=== PATIENT | male | born 1985 | race Caucasian/White ===

== ENCOUNTER → 2020-10-29 12:28 | Outpatient (BNVA) | payer SELFPAY | PROVIDERS: Family Provider Nurse Practitioner; Visit Provider Nurse Practitioner Family | DX: J06.9 Acute upper respiratory infection, unspecified (principal); Z20.828 Contact with and (suspected) exposure to other viral communicable diseases | CPT/HCPCS: 87635 ==

== ENCOUNTER → 2021-04-16 11:32 | Outpatient (BNVA) | payer SELFPAY | PROVIDERS: Family Provider Nurse Practitioner; Visit Provider Nurse Practitioner Family | DX: B00.9 Herpesviral infection, unspecified (principal); Z20.2 Contact with and (suspected) exposure to infections with a predominantly sexual mode of transmission | CPT/HCPCS: 87491; 87591 ==

== ENCOUNTER → 2021-07-07 12:22 | Outpatient (BNVA) | payer OTHER, SELFPAY | PROVIDERS: Family Provider Nurse Practitioner; Visit Provider Nurse Practitioner Family | DX: Z20.822 Contact with and (suspected) exposure to COVID-19 (principal) | CPT/HCPCS: 87635 ==

== ENCOUNTER → 2021-10-27 16:06 | Outpatient (BNVA) | payer OTHER, SELFPAY | PROVIDERS: Family Provider Nurse Practitioner; Visit Provider Nurse Practitioner Family | DX: Z20.822 Contact with and (suspected) exposure to COVID-19 (principal); J06.9 Acute upper respiratory infection, unspecified | CPT/HCPCS: 87635 ==

== ENCOUNTER → 2021-10-29 13:19 | Outpatient (BNVA) | payer OTHER, SELFPAY | PROVIDERS: Family Provider Nurse Practitioner; Visit Provider Nurse Practitioner Family | DX: Z20.822 Contact with and (suspected) exposure to COVID-19 (principal); J06.9 Acute upper respiratory infection, unspecified; Z20.828 Contact with and (suspected) exposure to other viral communicable diseases | CPT/HCPCS: 87635 ==

== ENCOUNTER 2023-04-29 19:25 | Emergency (ER) | payer MEDICAID, SELFPAY ==
[2023-04-29 19:27] VITALS: BP 103/74; PULSE 101; RESP 18; TEMP 36.7; O2SAT 99; BMI 29.8
--- NOTE | 2023-04-29 19:29 | XRR_ITS ---
PROCEDURE INFORMATION: Exam: XR Chest Exam date and time: 04/29/2023 7:36 PM Age: 37 years old Clinical indication: Pain; Chest pressure; Additional info: Cp TECHNIQUE: Imaging protocol: Radiologic exam of the chest. Views: 1 view. COMPARISON: No relevant prior studies available. FINDINGS: Lungs: The lung bases are suboptimally assessed due to technique however the upper lungs are clear of focal consolidation. Pleural spaces: The CP angles are partially excluded however no large pleural effusions are identified. No pneumothorax. Heart/Mediastinum: Cardiac silhouette appears normal in size. No obvious vascular congestion. Bones/joints: No acute osseous findings. Other findings: Single portable upright AP view was submitted. XR/XR chest 1V portable [id number] IMPRESSION: No obvious acute consolidation. Suboptimal lung base assessment. Followup including lateral view may be obtained if clinically indicated.
--- NOTE | 2023-04-29 19:29 | ECG_ITS ---
[facility] Test Date: 2023-04-29 Pat Name: Fabien Knight Department: Room: Gender: Male Recruiting Assistant: : 1985 Requested By: Jovon Gupta Order Number: [id number] Dannielle MD: Hi Garcia M.D. Measurements Intervals [place] Rate: 84 P: 14 [place]: 136 QRS: 78 QRSD: 86 T: 47 QT: 340 QTc: 403 Interpretive Statements SINUS RHYTHM No previous ECG available for comparison Electronically Signed On 04-29-2023 22:33:22 CDT by Hi Garcia M.D. [id number]
[2023-04-29 19:31] VITALS: PULSE 88; O2SAT 99
--- NOTE | 2023-04-29 19:36 | ED_ITS ---
HPI - Chest Pain General: Chief Complaint: Chest Pain Stated Complaint: CP Time Seen by Provider: 04/29/23 19:29 Source: patient, EMS and police Mode of arrival: EMS Limitations: no limitations History of Present Illness: 37-year-old male who is here from [facility]. He states he woke up roughly an hour ago with felt like he could not breathe he states his arms were shaking and had numbness in his arms he states he feeling headache of breath and his heart was racing. He states been having some chest pain. He is appears quite anxious he states he feels anxious as well. Denies any fevers denies any cough denies any worsening proving factors. Associated symptoms: Reports dyspnea; Deny abdominal pain, fever(s), nausea or vomiting Review of Systems Const: Denies: fever(s), chills, body aches or change in appetite Eyes: Denies: blurry vision or eye discomfort ENMT: Denies: throat pain or dental pain Card: Reports: chest pain Resp: Reports: dyspnea GI: Denies: abdominal pain, nausea, vomiting or diarrhea : Denies: dysuria Musc: Denies: neck pain or back pain Skin/Breast: Denies: rash Neuro: Denies: headache(s) Psych: Denies: depression Darian/Lymph: Denies: easy bruising All/Imm: Denies: urticaria PFS ED PFSH: Social History Smoking and tobacco status: current every day smoker Alcohol intake: never Physical Exam Const: COMMON NORMALS: no acute distress, patient oriented x3 and healthy appe [facility] GENERAL APPEARANCE: anxious HENMT: COMMON NORMALS: normocephalic and atraumatic HEAD & SCALP: normocephalic and atraumatic Neck/C-Spine: COMMON NORMALS: full ROM and supple Chest: COMMONS NORMALS: normal inspection of the chest and normal palpation of entire chest wall Resp: COMMON NORMALS: normal respiratory effort, No retractions, No use of accessory muscles and clear to auscultation bilaterally AUSCULTATION: clear to auscultation bilaterally Cardio: COMMON NORMALS: regular rate, regular rhythm and No murmurs present (Cardio) RATE: regular rate RHYTHM: regular rhythm GI: COMMON NORMALS: Normal to inspection, nondistended, normoactive bowel sounds present, Soft to palpation, non-tender and no masses PALPATION: Yes Soft to palpation Extremity: COMMON NORMALS: normal to inspection and full ROM Neuro: COMMON NORMALS: patient oriented x3, moves all extremities and no focal motor deficits Psych: COMMON NORMALS: mental status grossly normal, Normal thought process present and cooperative THOUGHT PROCESS: Normal thought process present Skin: COMMON NORMALS: no rashes or lesions noted and no wounds GENERAL SKIN EXAM: no rashes or lesions noted Course Vital Signs: Vital signs: Vital Signs Temperature 98.1 F 04/29/23 19: Pulse Rate 101 H 04/29/23 19: Respiratory Rate 18 04/29/23 19: Blood Pressure 103/74 04/29/23 19: Pulse Oximetry 99 04/29/23 19:27 MDM - Chest Pain Medical Decision Making Patient presents here with chest pain along with dyspnea is likely an anxiety attack. Patient feels much improved after Ativan his EKG x-ray and troponin here are normal he is stable for discharge he is to follow-up with PCP and return if worsening. Medical Records I reviewed the patient's medical records. Lab Data I reviewed the patient's lab results. 04/29/23 19:00 04/29/23 19:00 Laboratory Results WBC 8.4 10^3/uL (4.0-10.0) 04/29/23 19:00 RBC 4.97 10^6/uL (4.1-5.3) 04/29/23 19:00 Hgb 14.4 g/dL (11.7-16.6) 04/29/23 19:00 Hct 43.5 % (42.0-52.0) 04/29/23 19:00 MCV 87.5 fl (80-94) 04/29/23 19:00 MCH 29.0 pg (28.0-34.0) 04/29/23 19:00 MCHC 33.1 g/dL (30.0-36.0) 04/29/23 19:00 RDW 12.1 % (12.1-15.1) 04/29/23 19:00 Plt Count 260 10^3/cmm (130-400) 04/29/23 19:00 MPV 9.9 fL (7.4-10.4) 04/29/23 19:00 Neut % (Auto) 54.1 % 04/29/23 19:00 Lymph % (Auto) 33.5 % 04/29/23 19:00 [place] % (Auto) 7.9 % 04/29/23 19:00 Eos % (Auto) 3.5 % 04/29/23 19:00 Baso % (Auto) 0.6 % 04/29/23 19:00 Neut # (Auto) 4.53 10^3/uL (1.8-7.7) 04/29/23 19:00 Lymph # (Auto) 2.8 10^3/uL (0.8-4.8) 04/29/23 19:00 [place] # (Auto) 0.7 10^3/uL (0.2-0.9) 04/29/23 19:00 Eos # (Auto) 0.3 10^3/uL (0.0-0.8) 04/29/23 19:00 Baso # (Auto) 0.1 10^3/uL (0.0-0.1) 04/29/23 19:00 Nucleated RBC % (auto) 0 % 04/29/23 19:00 Nucleated RBCs # 0.0 /100WBC 04/29/23 19:00 Sodium 140 mmol/L (136-145) 04/29/23 19:00 Potassium 4.0 mmol/L (3.5-5.1) 04/29/23 19:00 Chloride 104 mmol/L (98-107) 04/29/23 19:00 Carbon Dioxide 25 mmol/L (22-29) 04/29/23 19:00 Anion Gap 15.0 (5-19) 04/29/23 19:00 BUN 20 mg/dL (6-20) 04/29/23 19:00 Creatinine 0.9 mg/dL (0.7-1.2) 04/29/23 19:00 GFR Calculation 94.4 mL/min (90-130) 04/29/23 19:00 Glucose 104 mg/dL (65-115) 04/29/23 19:00 Calculated Osmolality 293 mOsm/kg (285-295) 04/29/23 19:00 Calcium 8.5 mg/dL (8.5-10.5) 04/29/23 19:00 Total Bilirubin 0.3 mg/dL (0.15-1.2) 04/29/23 19:00 AST 12 U/L (0-40) 04/29/23 19:00 ALT 12 U/L (0-41) 04/29/23 19:00 Alkaline Phosphatase 72 U/L (40-130) 04/29/23 19:00 Troponin T Baseline 6 ng/L (0-15) 04/29/23 19:00 Total Protein 6.8 g/dL (6.6-8.7) 04/29/23 19:00 Albumin 4.4 g/dL (3.5-5.2) 04/29/23 19:00 Globulin 2.4 g/dL (1.3-4.6) 04/29/23 19:00 Lipase 25 U/L (13-60) 04/29/23 19:00 EKG Data EKG 1: I personally reviewed and interpreted this EKG as follows: EKG interpretation date: 04/29/23 EKG interpretation time: 19:29 Interpretation: nsr hr [address] or t wave abnormalities qrs 86 qtc 381 Discharge Plan Discharge Patient Disposition: Home Clinical Impression: Anxiety Condition: Stable Prescriptions: No Action No Known Home Medications Discharge Orders: Discharge ED (Routine); Ordered 04/29/23 Ordered By: Jovon Gupta Referrals: Maye Nolasco APN [Family Provider] - Discharge Diet: Advance as tolerated Discharge Activity: Resume usual activity Patient Instructions: Anxiety (ED) Coding Level of Care Code ED Chemists for Tasiag Baldev
[2023-04-29 19:53] LABS: Basophils # 0.1 10^3/uL (0.0-0.1); Basophils % 0.6 %; Eosinophils # 0.3 10^3/uL (0.0-0.8); Eosinophils % 3.5 %; Hematocrit 43.5 % (42.0-52.0); Hemoglobin 14.4 g/dL (11.7-16.6); Lymphocytes # 2.8 10^3/uL (0.8-4.8); Lymphocytes % 33.5 %; Mean Corpuscular HGB Conc 33.1 g/dL (30.0-36.0); Mean Corpuscular Volume 87.5 fl (80-94); Mean Platelet Volume 9.9 fL (7.4-10.4); Monocytes # 0.7 10^3/uL (0.2-0.9); Monocytes % 7.9 %; Neutrophils # 4.53 10^3/uL (1.8-7.7); Neutrophils % 54.1 %; Nucleated Red Blood Cells % 0 %; Platelet Count 260 10^3/cmm (130-400); Red Blood Count 4.97 10^6/uL (4.1-5.3); Red Cell Distribution Width 12.1 % (12.1-15.1); White Blood Count 8.4 10^3/uL (4.0-10.0)
[2023-04-29 19:54] LABS: Troponin(5th) Baseline 6 ng/L (0-15)
[2023-04-29 19:56] LABS: Alanine Aminotransferase 12 U/L (0-41); Albumin Level 4.4 g/dL (3.5-5.2); Alkaline Phosphatase 72 U/L (40-130); Aspartate Amino Transferase 12 U/L (0-40); Blood Urea Nitrogen 20 mg/dL (6-20); Calcium 8.5 mg/dL (8.5-10.5); Carbon Dioxide 25 mmol/L (22-29); Chloride 104 mmol/L (98-107); Globulin 2.4 g/dL (1.3-4.6); Glomerular Filtration Rate 94.4 mL/min (90-130); Glucose 104 mg/dL (65-115); Lipase 25 U/L (13-60); Osmolality Calculated 293 mOsm/kg (285-295); Sodium 140 mmol/L (136-145); Total Bilirubin 0.3 mg/dL (0.15-1.2); Total Protein 6.8 g/dL (6.6-8.7)
[2023-04-29] MEDS: LORazepam 2 mg/mL INJ 1 mL 1 MG IVP (20:15)
[2023-04-29 20:27] VITALS: BP 125/81; PULSE 81; RESP 12; O2SAT 97
--- NOTE | 2023-05-04 13:51 | DCPLANNER ---
mortgage branch manager called patient due to no primary care physician - no answer at this time.
== END 2023-04-29 20:30 | disposition home or self-care (01) ==
PROVIDERS: Emergency Provider Emergency Medicine
DX: F41.9 Anxiety disorder, unspecified (principal)
CPT/HCPCS: 71045; 80053; 83690; 84484; 85025; 93005; 96374; 99285; J2060

== ENCOUNTER → 2024-11-05 16:49 | Outpatient (BNVA) | payer OTHER, MEDICAID, SELFPAY | PROVIDERS: Visit Provider Registered Nurse Neonatal Intensive Care | DX: Z20.822 Contact with and (suspected) exposure to COVID-19 (principal) | CPT/HCPCS: 87426 ==